=== PATIENT | male | born 1965 | race Caucasian/White ===

== ENCOUNTER 2016-09-15 14:20 | Emergency (ER) | payer OTHER ==
[2016-09-15 15:41] LABS: BASOPHIL 0.2 % (0-2); EOSINOPHIL 0.5 % (0-5); HCT 29.2 % (42.0-52.0); MCH 32.6 pg (25.0-31.0); MCHC 34.2 g/dL (32.0-36.0); MCV 95.1 fL (78.0-100.0); MPV 9.5 fL (6.0-9.5); NEUTROPHIL 88.3 % (41-80); PLT 520 K/uL (150-400); RBC 3.07 M/uL (4.70-6.00); RDW 14.1 % (11.5-14.0)
[2016-09-15 15:43] LABS: WBC 12.9 K/uL (4.0-10.5)
[2016-09-15 16:17] LABS: ALBUMIN 3.7 g/dL (3.5-5.0); BILIRUBIN - TOTAL 1.7 mg/dL (0.1-1.0); GLOBULIN (CALCULATION) 4.5 g/dL (2.2-4.2); TOTAL PROTEIN 8.2 g/dL (6.4-8.3)
[2016-09-15 17:57] LABS: BILIRUBIN 2+ mg/dL (NEGATIVE); BLOOD NEGATIVE Ery/uL (NEGATIVE); CLARITY CLEAR (CLEAR); COLOR ORANGE (YELLOW); GLUCOSE (U) NORMAL (NORMAL); KETONE (U) TRACE mg/dL (NEGATIVE); LEUKOCYTES NEGATIVE Leu/uL (NEGATIVE); PROTEIN 1+ mg/dL (NEGATIVE); SPECIFIC GRAVITY 1.025 (1.001-1.030); UROBILINOGEN >=8.0 mg/dL (0.2-1.0)
[2016-09-15 18:07] LABS: NITRITE NEGATIVE (NEGATIVE)
[2016-09-15 18:08] LABS: BACTERIA 1+; MUCOUS MODERATE
[2016-09-15 19:22] LABS: LACTIC ACID 2.2 mmol/L (0.5-2.2)
== END 2016-09-15 22:56 | disposition other institution (70) ==
LOC: FER 14:20
PROVIDERS: Nurse Practitioner
DX: M10.061 Idiopathic gout, right knee (principal); M10.072 Idiopathic gout, left ankle and foot; M62.82 Rhabdomyolysis; Z88.2 Allergy status to sulfonamides; Z88.8 Allergy status to other drugs, medicaments and biological substances; Z94.4 Liver transplant status
CPT/HCPCS: 36415; 80053; 81001; 82150; 82550; 83605; 83690; 85025; 85651; 87804; 87899; J1100; J2270; J2405